=== PATIENT | female | born 1955 | race African-American/Black ===

== ENCOUNTER 2018-02-19 09:20 | Outpatient (CLI) | payer OTHER ==
--- NOTE | 2018-02-19 10:00 | XRay Report ---
LEFT HAND RADIOGRAPHS INDICATION: Fractured left wrist. COMPARISON: None similar. FINDINGS: AP and lateral left hand radiographs demonstrate intact bony articulation with mild, age-appropriate degenerative changes as involving the interphalangeal joints of the thumb as also the second digit DIP joint. No focal suspicious erosions. Grossly normal imaged wrist and unremarkable soft tissues. 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 Please correlate. Thank you for the opportunity to participate in this patient's care.
== END 2018-02-19 09:21 | disposition home or self-care (01) ==
LOC: XRAY 09:20
PROVIDERS: ATTEND Internal Medicine
DX: S62.102A Fracture of unspecified carpal bone, left wrist, initial encounter for closed fracture (principal); M19.032 Primary osteoarthritis, left wrist; X58.XXXA Exposure to other specified factors, initial encounter; Y93.89 Activity, other specified; Y92.89 Other specified places as the place of occurrence of the external cause; Y99.8 Other external cause status

== ENCOUNTER 2019-02-20 10:14 | Outpatient (CLI) | payer MEDICARE ==
--- NOTE | 2019-02-20 13:21 | Mammography Report ---
BILATERAL DIGITAL SCREENING MAMMOGRAM with CAD : 02/20/19 10:14:00 CLINICAL: Routine screening. COMPARISON:01/04/13 FINDINGS: The breasts are heterogeneously dense, which may obscure small masses. No mass, architectural distortion or suspicious calcifications. IMPRESSION: No mammographic evidence of malignancy. BI-RADS CATEGORY: 2 -- Benign RECOMMENDATION: Routine mammographic screening in one year. COMMENT: Patient follow-up letters are generated by our [employer] application.
== END 2019-02-20 10:15 | disposition home or self-care (01) ==
LOC: MAMMO 10:14
PROVIDERS: ATTEND Family Medicine
DX: Z12.31 Encounter for screening mammogram for malignant neoplasm of breast (principal)
CPT/HCPCS: 77067